=== PATIENT | male | born 1985 | race Caucasian/White ===

== ENCOUNTER 2018-11-09 07:04 | Emergency (ER) | payer SELFPAY ==
[2018-11-09] MEDS ORDERED: Omeprazole CAP (NF) 20 MG CAP.DR PO ONE (07:22)
[2018-11-09] MEDS ORDERED: Metoclopramide TAB* 10 MG PO ONE (07:22)
[2018-11-09] MEDS ORDERED: Pantoprazole TAB * 40 MG TAB PO ONE (07:26)
--- NOTE | 2018-11-09 07:26 | UC ---
Abdominal Pain Male HPI - HPI Summary HPI Summary: C/O acid reflux for the last several months, worse the last 3-4 days. Previously relieved with TUMS but no relief last night. No SOB. Pain does radiate into the chest. Unable to lie down. - History of Current Complaint Stated Complaint: ACID REFLUX Time Seen by Provider: 11/09/18 07:10 Hx Obtained From: Patient Onset/Duration: Gradual Onset, Lasting Weeks - 4, Worse Since - the last 4 days Timing: Constant Severity Initially: Mild Severity Currently: Severe Location: Epigastric Radiates: Yes Character: Burning, Sharp Aggravating Factor(s): Food, Other - lying flat Alleviating Factor(s): Position Associated Signs And Symptoms: Negative: Diaphoresis, Constipation, Urinary Symptoms, Decreased Appetite, Nausea, Vomiting, Diarrhea - Allergies/Home Medications Allergies/Adverse Reactions: Allergies Allergy/AdvReac Type Severity Reaction Status Date / Time amoxicillin Allergy "Closed my Verified 11/09/18 07:23 airway...when I was a kid." Penicillins Allergy "Closed my Verified 11/09/18 07:23 airway...when I was a kid." Home Medications: Home Medications Calcium Carbonate CHEW TAB* [Tums*] 500 - 1,000 mg PO SEE INSTRUCTIONS PRN 11/09 [History Confirmed 11/09/18] PMH/Surg Hx/FS Hx/Imm Hx Previously Healthy: Yes - Surgical History Surgical History: None - Family History Known Family History: Positive: Diabetes - Social History Occupation: Employed Full-time Lives: With Family Alcohol Use: Rare Substance Use Type: None Smoking Status (MU): Former Smoker Type: Cigarettes Length of Time of Smoking/Using Tobacco: 10 years Review of Systems All Other Systems Reviewed And Are Negative: Yes Gastrointestinal: Positive: Abdominal Pain, Other - some early satiety Is Patient Immunocompromised?: No Physical Exam Triage Information Reviewed: Yes Appearance: Well-Appearing, Pain Distress - mild, Obese Vital Signs Reviewed: Yes Eyes: Positive: Conjunctiva Clear ENT: Positive: Pharynx normal, TMs normal Neck exam: Normal Respiratory Exam: Normal Cardiovascular Exam: Normal Abdomen Description: Negative: Nontender - mild RUQ tenderness, Peritoneal Signs Bowel Sounds: Positive: Present Musculoskeletal Exam: Normal Neurological Exam: Normal Psychological Exam: Normal Skin Exam: Normal Diagnostics - EKG Cardiac Rate: NL Cardiac Rhythm: Sinus: Normal Ectopy: None ST Segment: Normal Summary of EKG Findings: Normal Abd Pain Male Course/Dx - Differential Dx/Clinical Impression Differential Diagnosis/HQI/PQRI: AMI, Gall Bladder Disease, Pancreatitis, Peptic Ulcer Disease Provider Diagnosis: GERD (gastroesophageal reflux disease), Morbid obesity Discharge - Sign-Out/Discharge Documenting (check all that apply): Patient Departure All imaging exams completed and their final reports reviewed: No Studies - Discharge Plan Condition: Stable Disposition: HOME Prescriptions: Pantoprazole TAB * [Protonix TAB*] 40 mg PO DAILY #30 tab Patient Education Materials: Gastroesophageal Reflux Disease (ED), Pantoprazole (By mouth) Referrals: No Primary Care Phys,NOPCP [Primary Care Provider] - 5 Days (find new physician) Additional Instructions: Work on weight loss and stop the chewing tobacco. You should get follow up with a manager business operations due to feeling full sooner. Small meals, low fat and avoid caffeine and eating before bed. - Billing Disposition and Condition Condition: STABLE Disposition: Home
[2018-11-09 07:30] VITALS: BP 123/79
== END 2018-11-09 07:47 | disposition home or self-care (01) ==
LOC: UCCORT 07:04
DX: K21.9 Gastro-esophageal reflux disease without esophagitis (principal); E66.01 Morbid (severe) obesity due to excess calories; Z88.0 Allergy status to penicillin; Z87.891 Personal history of nicotine dependence
CPT/HCPCS: 99202; A9270-GY; G0463